=== PATIENT | female | born 1935 | race Caucasian/White ===

== ENCOUNTER 2017-07-15 22:34 | Emergency (ER) | payer SELFPAY ==
[~2017-07-15] VITALS: Ht 162.6 cm; Wt 74.4 kg
[2017-07-15 22:44] VITALS: BP 140/65
[2017-07-15] MEDS ORDERED: METF1000 PO (22:54)
[2017-07-15] MEDS ORDERED: SIMV20TA1 PO (22:54)
[2017-07-15] MEDS ORDERED: HYDR-7 PO (22:54)
[2017-07-15] MEDS ORDERED: CIPR500T4 PO (22:54)
--- NOTE | 2017-07-15 22:58 | NUR ---
TO ER BED 6
--- NOTE | 2017-07-15 23:03 | NUR ---
PATIENT PRESENTS TO ED WITH GENERALIZED WEAKNESS AND BODY PAIN SINCE YESTERDAY SEEN BY DOCTOR YESTERDAY, DX UTI; TAKING CIPRO . PT DENIES N/V/D; SKIN IS PINK/WARM/DRY; AAOX4 WITH EVEN AND STEADY GAIT; LUNGS CLEAR BL; HR EVEN AND REGULAR; PT DENIES ANY FEVER, CP, SOB, OR COUGH AT THIS TIME; PATIENT STATES PAIN OF 08/10 AT THIS TIME; VSS; PATIENT POSITIONED FOR COMFORT; HOB ELEVATED; BEDRAILS UP X2; BED DOWN. ER MD MADE AWARE OF PT STATUS.
[2017-07-15 23:45] LABS: EOSINOPHILS # (AUTO) 0.1 K/uL (0-0.4); MEAN CORPUSCULAR VOLUME 80 fL (80-94); NEUTROPHILS # (AUTO) 7.9 K/uL (1.8-7.7); RED CELL DISTRIBUTION WIDTH 15.9 % (11.6-13.7)
[2017-07-15 23:48] LABS: BASOPHILS # (AUTO) 0.2 K/uL (0.00-0.22); BASOPHILS % (AUTO) 1.5 % (0.0-2.0); EOSINOPHILS % (AUTO) 0.6 % (0.0-4.0); HEMATOCRIT 32.1 % (36-48); HEMOGLOBIN 10.2 g/dL (12.0-16.0); LYMPHOCYTES # (AUTO) 1.2 K/uL (2.5-16.5); LYMPHOCYTES % (AUTO) 12.1 % (20.5-51.1); MEAN CORPUSCULAR HEMOGLOBIN 26 pg (27-31); MEAN CORPUSCULAR HGB CONC 32 g/dL (33-37); MONOCYTES # (AUTO) 0.9 K/uL (0.8-1.0); MONOCYTES % (AUTO) 9.2 % (1.7-9.3); NEUTROPHILS % (AUTO) 76.6 % (42.2-75.2); PLATELET COUNT (AUTO) 220 K/uL (140-450); WHITE BLOOD COUNT (AUTO) 10.3 K/uL (4.8-10.8)
[2017-07-15 23:51] LABS: ANION GAP 10.9 (8-16); CHLORIDE 100 mmol/L (98-107); GLUCOSE 159 mg/dL (74-106); POTASSIUM 3.9 mmol/L (3.5-5.1); SODIUM SERUM 138 mmol/L (136-145); UREA NITROGEN, BLOOD 31 mg/dL (7-18)
[2017-07-15 23:57] LABS: ASPARTATE AMINOTRANSFERASE 35 U/L (15-37); TOTAL BILIRUBIN 0.3 mg/dL (0.0-1.0)
[2017-07-16 01:12] VITALS: BP 118/54
== END 2017-07-16 01:12 | disposition home or self-care (01) ==
LOC: MED 22:34
DX: N39.0 Urinary tract infection, site not specified (principal)
CPT/HCPCS: 36415; 71010; 80053; 81002; 82948; 83605; 85025; 87040; 87086; 99285; Q0092